=== PATIENT | male | born 1960 | race Caucasian/White ===

== ENCOUNTER 2018-04-28 11:54 | Emergency (ER) | payer OTHER ==
[~2018-04-28] VITALS: Ht 182.9 cm; Wt 72.6 kg
[~2018-04-28 11:54] MED LIST: ACETAMINOPHEN325 M1 PO; BENZTROPINE MES1 MG PO; BISMATROL262 MG/15 PO; CEPACOL SORE T1 EAC7 MM; CITRATE OF MAG296 ML; CLONAZEPAM 1 MG1 M1 PO; CLONIDINE0.1 PO; DEPAKOTE 250MG250 M1 PO; DEPAKOTE ER500 MG PO; DEPAKOTE500 MG PO; DOC-Q-LACE100 MG PO; DOCUSATE SODIU100 MG PO; FOLIC ACID1 MG PO; IBUPROFEN 600600 M1 PO; KEPPRA; KEPPRA 500 MG500 M2 PO; KEPPRA1000 MG PO; LACTULOSE10 GM/152 PO; LAMICTAL; LAMICTAL 25 MG25 MG PO; LISINOPRIL20 MG PO; LORATIDINE 10 M10 M1 PO; METAMUCIL1 EAC1 PO; MIRALAX17 GM PO; MIRALAX255 GM PO; NYSTATIN 100,0015 G1 TP; OMEPRAZOLE20 M2; PRENATAL; QUETIAPINE FUM300 MG PO; QUETIAPINE FUM400 MG PO; RISPERDAL 1 MG T1 MG PO; SENOKOT-S1 TA1 PO; TRIPLE ANTIBIO1 EACH TP
[2018-04-28] MEDS ORDERED: MOBIC7.5 MG PO (13:57)
[2018-04-28 15:52] VITALS: BP 92/57
== END 2018-04-28 15:15 | disposition home or self-care (01) ==
LOC: ER 11:54
DX: S52.232A Displaced oblique fracture of shaft of left ulna, initial encounter for closed fracture (principal); F41.9 Anxiety disorder, unspecified; F84.0 Autistic disorder; G80.9 Cerebral palsy, unspecified; W22.03XA Walked into furniture, initial encounter; Y93.89 Activity, other specified; Y92.89 Other specified places as the place of occurrence of the external cause; Y99.8 Other external cause status

== ENCOUNTER 2019-09-25 17:33 | Emergency (ER) | payer OTHER ==
[~2019-09-25] VITALS: Ht 177.8 cm; Wt 54.4 kg
--- NOTE | ~2019-09-25 | HC ---
[facility] [place] [address] CONSULTATION Name: LINETTEASAFRENETTA RENNER ELAINE Brooks III Room #: REG Salvador#: [id number] Admission: 09/25/19 Attend Phys: Discharge: Date of : 62 Report #: [id number] THIS REPORT FOR: //name// CC: FAM liliana Tanna Mejiadomenico DATE OF SERVICE: 09/25/2019 EMERGENCY ROOM CONSULTATION NOTE REASON FOR CONSULTATION: Foreign body in throat. HISTORY OF PRESENT ILLNESS: The patient is a 58-year-old male who has developmental disorder. Unfortunately, he fell and struck his face on the ground and sustained a laceration, which was repaired in the Emergency Room. He also broke the upper central incisor. A CT scan of his neck revealed foreign body in the hypopharynx. I was asked to help remove the foreign body. PHYSICAL EXAMINATION: GENERAL: Mentally handicapped male, in no acute distress, breathing normally, in no respiratory distress. Voice is normal. NECK: Nontender. No adenopathy or masses. No subcutaneous emphysema. ORAL: Broken right central incisor. FACE: Lacerations were repaired. CT scan reveals foreign substance in the vallecula on the left side. ASSESSMENT: Foreign body in larynx. RECOMMENDATION: Direct laryngoscopy and removal of foreign body. By: 2024 [id number] Shaq De Leon MD /nt
--- NOTE | ~2019-09-25 | O ---
[facility] [place] [address] OPERATIVE REPORT Name: RENETTA REDMAN Todd [facility]: [id number] Admission: 09/25/19 Attend Phys: Discharge: Date of : 62 Report #: [id number] THIS REPORT FOR: //name// CC: FAM liliana Seguraa Gregor PREOPERATIVE DIAGNOSIS: Foreign body in larynx. POSTOPERATIVE DIAGNOSIS: Foreign body in larynx. OPERATIVE PROCEDURE: Direct laryngoscopy and removal of foreign body. ANESTHESIA: Conscious sedation. DESCRIPTION OF PROCEDURE: The patient was given intravenous sedation by the Emergency Room physician. A GlideScope was then used to examine the hypopharynx and larynx. There was a broken tooth noted in the vallecula on the left side, which was removed with Antonieta forceps. The larynx was fine with wide open laryngeal airway. No other pathology. The hypopharynx and oropharynx were normal. The patient tolerated the procedure. He will be discharged home in good condition. No followup required for this. By: 24 45 Shaq De Leon MD /nt
[~2019-09-25 17:33] MED LIST changes: +MOBIC7.5 MG PO
[2019-09-25 21:13] VITALS: BP 146/74
== END 2019-09-25 21:13 | disposition home or self-care (01) ==
LOC: ER 17:33
DX: S02.5XXA Fracture of tooth (traumatic), initial encounter for closed fracture (principal); S01.112A Laceration without foreign body of left eyelid and periocular area, initial encounter; S01.111A Laceration without foreign body of right eyelid and periocular area, initial encounter; T17.290A Other foreign object in pharynx causing asphyxiation, initial encounter; F41.9 Anxiety disorder, unspecified; F84.0 Autistic disorder; W18.39XA Other fall on same level, initial encounter; Y92.89 Other specified places as the place of occurrence of the external cause; Y93.89 Activity, other specified; Y99.8 Other external cause status

== ENCOUNTER 2021-03-31 12:41 | Emergency (ER) | payer OTHER ==
[~2021-03-31] VITALS: Ht 177.8 cm; Wt 54.4 kg
[2021-03-31 12:48] VITALS: BP 144/64
== END 2021-03-31 13:25 ==
LOC: ER 12:41
DX: H57.89 Other specified disorders of eye and adnexa (principal); F84.0 Autistic disorder; Z79.899 Other long term (current) drug therapy